=== PATIENT | female | born 1975 | race Two or more races ===

== ENCOUNTER 2019-10-23 08:59 | Emergency (ER) | payer MEDICAID ==
[~2019-10-23] VITALS: Ht 157.5 cm; Wt 96.0 kg
[2019-10-23 09:30] VITALS: BP 109/67
== END 2019-10-23 10:20 | disposition home or self-care (01) ==
LOC: ER 08:59
DX: J06.9 Acute upper respiratory infection, unspecified (principal); M60.9 Myositis, unspecified
CPT/HCPCS: 99283; Z7610

== ENCOUNTER 2019-10-31 15:40 | Inpatient (IN) | payer MEDICAID ==
[~2019-10-31] VITALS: Ht 157.5 cm; Wt 90.7 kg
[2019-10-31 05:20] VITALS: BP 106/60
[2019-10-31] MEDS ORDERED: IBUPROFEN 800MG TABLET PO ONE (16:00)
[2019-10-31] MEDS ORDERED: SODIUM CHLORIDE 0.9% 1000ML BAG (SEPSIS BOLUS) IV ONE (16:00)
[2019-10-31] MEDS ORDERED: ACETAMINOPHEN 325MG TABLET PO STA (16:00)
[2019-10-31] MEDS ORDERED: PIPERACILLIN/TAZ 3.375G PREMIX 50 ML IV ONE (16:15)
[2019-10-31 16:20] LABS: BASOPHILS % 0.4 % (0.0-2.0); EOSINOPHILS % 0.1 % (0.0-5.0); HEMATOCRIT. 39.7 % (36.0-48.0); HEMOGLOBIN. 13.2 g/dL (12.0-16.0); LYMPHOCYTES % 11.9 % (20.0-50.0); MEAN CORPUSCULAR HEMOGLOBIN 28.5 pg (28.0-32.0); MEAN CORPUSCULAR VOLUME 85.5 fL (81.0-99.0); MEAN PLATELET VOLUME 7.8 fl (7.4-10.4); NEUTROPHILS % 81.6 % (40.0-76.0); PLATELET 348 x1000/uL (130-400); RED BLOOD CELL COUNT 4.65 mill/uL (4.2-5.4); RED CELL DISTRIBUTION WIDTH 14.4 % (11.6-14.6)
[2019-10-31 16:26] LABS: CHLORIDE 103 mEq/L (98-107)
[2019-10-31 16:27] LABS: INR 1.1; PROTHROMBIN TIME 11.3 sec (9.6-11.0)
[2019-10-31 16:31] LABS: HCG SCREEN NEGATIVE
[2019-10-31 17:26] LABS: CLARITY URINE CLEAR (CLEAR); COLOR URINE YELLOW (YELLOW); KETONES URINE NEGATIVE (NEGATIVE); LEUKOCYTE ESTERASE URINE NEGATIVE (NEGATIVE); NITRITE URINE NEGATIVE (NEGATIVE); OCCULT BLOOD URINE NEGATIVE (NEGATIVE); PH URINE 7.5 (4.5-8.0); PROTEIN URINE TRACE (NEGATIVE); SPECIFIC GRAVITY URINE 1.028 (1.005-1.030)
[2019-10-31] MEDS ORDERED: OSELTAMIVIR 75MG CAPSULE PO ONE (18:00)
[2019-10-31] MEDS ORDERED: LEVOFLOXACIN 500MG PREMIX 100 ML IV ONE (18:00)
[2019-10-31 21:15] VITALS: BP 107/59
[2019-10-31] MEDS ORDERED: LORAZEPAM 2MG/ML CPJ IV PRN (21:45)
[2019-10-31] MEDS ORDERED: ONDANSETRON HCL 4MG/2ML INJ IV PRN (21:45)
[2019-10-31] MEDS ORDERED: HYDROCODONE/ACETAMINOPHEN 5/325MG TABLET PO PRN (21:45)
[2019-10-31] MEDS ORDERED: CLONIDINE 0.1MG TABLET PO PRN (21:45)
[2019-10-31] MEDS ORDERED: MORPHINE SULFATE 2 MG/ML CPJ (NOT FOR IM USE) IV PRN (21:45)
[2019-10-31] MEDS: ENOXAPARIN 30MG/0.3ML SYR SUBCUT SCH (22:39)
[2019-10-31] MEDS: SODIUM CHLORIDE 0.9% 1,000 ML IV SCH (22:40)
[2019-10-31] MEDS: METRONIDAZOLE 500 MG PREMIX 100 ML IV SCH (23:54)
[2019-11-01] VITALS: BP 95/45
[2019-11-01] MEDS ORDERED: PROM5SYR PO (00:29)
[2019-11-01] MEDS ORDERED: FLUT9.9S BOTHNSTRLS (00:29)
[2019-11-01 04:00] VITALS: BP 97/63
[2019-11-01] MEDS: METRONIDAZOLE 500 MG PREMIX 100 ML IV SCH ×3 (05:30→21:19)
[2019-11-01 07:23] LABS: CHLORIDE 107 mEq/L (98-107)
[2019-11-01] MEDS: SODIUM CHLORIDE 0.9% 1,000 ML IV SCH ×2 (07:45→17:47)
[2019-11-01 07:50] LABS: BASOPHILS % 0.1 % (0.0-2.0); EOSINOPHILS % 0.2 % (0.0-5.0); HEMATOCRIT. 34.2 % (36.0-48.0); HEMOGLOBIN. 11.4 g/dL (12.0-16.0); LYMPHOCYTES % 14.2 % (20.0-50.0); MEAN CORPUSCULAR HEMOGLOBIN 28.5 pg (28.0-32.0); MEAN CORPUSCULAR VOLUME 85.6 fL (81.0-99.0); MEAN PLATELET VOLUME 8.3 fl (7.4-10.4); MONOCYTES % 5.7 % (2.0-8.0); NEUTROPHILS % 79.8 % (40.0-76.0); PLATELET 312 x1000/uL (130-400); RED BLOOD CELL COUNT 3.99 mill/uL (4.2-5.4); RED CELL DISTRIBUTION WIDTH 14.2 % (11.6-14.6)
[2019-11-01 08:00] VITALS: BP 102/52
[2019-11-01] MEDS: ENOXAPARIN 30MG/0.3ML SYR SUBCUT SCH ×2 (09:38→21:19)
[2019-11-01] MEDS ORDERED: IPRATROPIUM/ALBUTEROL 0.5-3(2.5)MG/3ML NEB HHN PRN (11:45)
[2019-11-01 12:00] VITALS: BP 105/51
[2019-11-01 16:00] VITALS: BP 99/52
[2019-11-01] MEDS ORDERED: LEVOFLOXACIN 500MG PREMIX 100 ML IV SCH (18:00)
[2019-11-01] MEDS: METHYLPREDNISOLONE SOD SUCC 40 MG/ML VIAL IV SCH (18:09)
[2019-11-01 20:00] VITALS: BP 97/54
[2019-11-01] MEDS: IPRATROPIUM/ALBUTEROL 0.5-3(2.5)MG/3ML NEB HHN SCH (21:22)
[2019-11-02] VITALS: BP 101/43
[2019-11-02] MEDS: IPRATROPIUM/ALBUTEROL 0.5-3(2.5)MG/3ML NEB HHN SCH ×4 (01:13→13:04)
[2019-11-02] MEDS: SODIUM CHLORIDE 0.9% 1,000 ML IV SCH (01:31)
[2019-11-02] MEDS: METHYLPREDNISOLONE SOD SUCC 40 MG/ML VIAL IV SCH ×2 (03:15→11:58)
[2019-11-02 04:00] VITALS: BP_SYST 108; BP_SYST 122; BP_DIAS 36; BP_DIAS 69
[2019-11-02] MEDS: METRONIDAZOLE 500 MG PREMIX 100 ML IV SCH (05:27)
[2019-11-02 07:01] LABS: HEMATOCRIT. 38.2 % (36.0-48.0); HEMOGLOBIN. 12.3 g/dL (12.0-16.0); MEAN CORPUSCULAR HEMOGLOBIN 28.1 pg (28.0-32.0); MEAN PLATELET VOLUME 8.4 fl (7.4-10.4); PLATELET 339 x1000/uL (130-400); RED BLOOD CELL COUNT 4.39 mill/uL (4.2-5.4); RED CELL DISTRIBUTION WIDTH 14.5 % (11.6-14.6)
[2019-11-02 08:00] VITALS: BP 124/68
[2019-11-02 08:13] LABS: CHLORIDE 110 mEq/L (98-107)
[2019-11-02] MEDS: ENOXAPARIN 30MG/0.3ML SYR SUBCUT SCH (10:19)
[2019-11-02 10:45] LABS: PLATELET ESTIMATE NORMAL
[2019-11-02 12:00] VITALS: BP 124/64
[2019-11-02] MEDS ORDERED: LEVO750T21 MT (12:25)
[2019-11-02] MEDS ORDERED: ALBU18HF2 IH (12:25)
[2019-11-02] MEDS ORDERED: P20 MT (12:25)
[2019-11-02 12:36] VITALS: BP 124/64
== END 2019-11-02 13:40 | disposition home or self-care (01) | DRG 720 ==
LOC: ER 15:40 → EDBEDREQ 18:01 → EDBEDREQTM 18:02 → 6EST 19:02 → ENRESERV 19:05
PROVIDERS: ADMIT Internal Medicine Nephrology; ATTEND Family Medicine
DX: A41.9 Sepsis, unspecified organism (principal); J18.9 Pneumonia, unspecified organism; K76.0 Fatty (change of) liver, not elsewhere classified; K80.10 Calculus of gallbladder with chronic cholecystitis without obstruction; E87.1 Hypo-osmolality and hyponatremia; E66.9 Obesity, unspecified; J40 Bronchitis, not specified as acute or chronic; Z90.710 Acquired absence of both cervix and uterus; Z68.36 Body mass index [BMI] 36.0-36.9, adult; Z71.3 Dietary counseling and surveillance
CPT/HCPCS: 36415; 71045; 74176; 76705; 78227; 80048; 80053; 81003; 83605; 83880; 84145; 84484; 84703; 85025; 87804; 93005; 94640; 99291; A9537; J1650; J1956; J2270; J2405; J2543; J2920; J3490; J7030; J7620

== ENCOUNTER 2021-02-24 12:32 | Emergency (ER) | payer MEDICAID ==
[~2021-02-24] VITALS: Ht 160 cm; Wt 100.0 kg
[~2021-02-24 12:32] MED LIST: ALBU18HF2 IH; FLUT9.9S BOTHNSTRLS; LEVO750T21 MT; P20 MT; PROM5SYR PO
[2021-02-24 12:39] VITALS: BP 118/87
[2021-02-24] MEDS ORDERED: ACETAMINOPHEN 325MG TABLET PO ONE (14:15)
[2021-02-24] MEDS ORDERED: DICL100G31 TP (14:58)
[2021-02-24] MEDS ORDERED: ACET-2708 MT (14:58)
== END 2021-02-24 15:17 | disposition home or self-care (01) ==
LOC: ER 12:32
DX: M79.661 Pain in right lower leg (principal); Z91.81 History of falling
CPT/HCPCS: 73562; 99283